=== PATIENT | female | born 1965 | race Caucasian/White ===

== ENCOUNTER 2020-02-18 23:58 | Inpatient (IN) ==
[2020-02-19] MEDS ORDERED: diphenhydrAMINE CAP 25 MG CAPSULE PO PRN (01:22)
[2020-02-19] MEDS ORDERED: hydrALAZINE 20 MG/1 ML VIAL IV PRN (01:22)
[2020-02-19] MEDS ORDERED: MORPHINE 4 MG/1 ML VIAL IV PRN (01:22)
[2020-02-19] MEDS ORDERED: GLUCAGON 1 MG VIAL IM PRN (01:22)
[2020-02-19] MEDS ORDERED: ONDANSETRON 4 MG/2 ML VIAL IV PRN (01:22)
[2020-02-19] MEDS ORDERED: NICOTINE 21 MG/24 HR PATCH TRANSDERM PRN (01:22)
[2020-02-19] MEDS ORDERED: DEXTROSE 50% 25 GM/50 ML VIAL IV PRN (01:22)
[2020-02-19] MEDS ORDERED: AZITHROMYCIN INJ 500 MG in SODIUM CHLORIDE 0.9% 250 ML IV SCH (01:30)
[2020-02-19] MEDS: DEXAMETHASONE 4 MG/1 ML VIAL IV SCH ×2 (03:54→13:30)
[2020-02-19 05:56] LABS: Basophils % 0.3 % (0.0-0.8); Hematocrit 41.9 VOL% (35.7-47.0); Hemoglobin 13.8 GM/DL (12.0-16.0); Immature Granulocytes % 0.3 %; Immature Granulocytes Absolute 0.01 #; Lymphocytes # 0.9 10*3/uL (1.4-4.0); Lymphocytes % 23.9 % (21.3-54.2); Mean Corpuscular HGB Conc 32.9 GM/DL (32-36); Mean Corpuscular Volume 87.7 FL (87-102); Mean Platelet Volume 9.2 FL (9.6-12.0); Monocytes % 2.7 % (1.7-12.7); Neutrophils % 72.8 % (38.7-73.9); Platelet Count 207 T/CUMM (130-400); Red Blood Count 4.78 MC/CUMM (3.8-5.5); Red Cell Distribution Width 12.4 % (9.3-17.3); White Blood Count 3.7 T/CUMM (4-12)
[2020-02-19 06:30] LABS: Albumin 2.8 G/DL (3.4-5.0); Bilirubin,Total 0.6 MG/DL (0.2-1.0); Calcium 8.3 MG/DL (8.5-10.1); Ferritin 948.8 ng/ml (8-252); Osmolality,Calculated 287.3 MOS/KG (273-304); Total Protein 6.8 G/DL (6.4-8.3)
[2020-02-19] MEDS: ENOXAPARIN 40 MG/0.4 ML SYRINGE SUBCUT SCH (09:19)
[2020-02-19] MEDS: INSULIN REGULAR 100 UNIT/ML SUBCUT SCH ×4 (09:19→21:15)
[2020-02-19] MEDS: ASCORBIC ACID 500 MG TABLET PO SCH ×2 (09:52→21:15)
[2020-02-19] MEDS: ZINC SULFATE 220 MG CAPSULE PO SCH (09:52)
[2020-02-19] MEDS ORDERED: cefTRIAXone 1,000 MG in SYRINGE 1 EACH IV SCH (13:00)
[2020-02-19] MEDS: SIMVASTATIN 10 MG TABLET PO SCH (21:54)
[2020-02-19] MEDS: tiZANidine 4 MG TABLET PO SCH (21:54)
[2020-02-19] MEDS: PREGABALIN 100 MG CAPSULE PO SCH (21:54)
[2020-02-19] MEDS: AMITRIPTYLINE 25 MG TABLET PO SCH (21:54)
[2020-02-20] MEDS: DEXAMETHASONE 4 MG/1 ML VIAL IV SCH ×2 (04:05→09:48)
[2020-02-20 05:10] LABS: Basophils % 0.1 % (0.0-0.8); Hematocrit 42.3 VOL% (35.7-47.0); Hemoglobin 13.9 GM/DL (12.0-16.0); Immature Granulocytes % 0.3 %; Immature Granulocytes Absolute 0.03 #; Lymphocytes # 1.1 10*3/uL (1.4-4.0); Lymphocytes % 11.4 % (21.3-54.2); Mean Corpuscular HGB Conc 32.9 GM/DL (32-36); Mean Platelet Volume 10.2 FL (9.6-12.0); Monocytes % 5.6 % (1.7-12.7); Neutrophils % 82.6 % (38.7-73.9); Platelet Count 257 T/CUMM (130-400); Red Blood Count 4.86 MC/CUMM (3.8-5.5); Red Cell Distribution Width 12.2 % (9.3-17.3); White Blood Count 9.3 T/CUMM (4-12)
[2020-02-20 05:37] LABS: Calcium 8.2 MG/DL (8.5-10.1); Ferritin 761.8 ng/ml (8-252); Osmolality,Calculated 287.4 MOS/KG (273-304)
[2020-02-20] MEDS: ASCORBIC ACID 500 MG TABLET PO SCH ×2 (09:28→20:44)
[2020-02-20] MEDS: PANTOPRAZOLE 40 MG TABLET PO SCH (09:29)
[2020-02-20] MEDS: glipiZIDE 10 MG TABLET PO SCH ×2 (09:29→18:25)
[2020-02-20] MEDS: PREGABALIN 100 MG CAPSULE PO SCH ×4 (09:29→21:30)
[2020-02-20] MEDS: lisinopriL 5 MG TABLET PO SCH (09:30)
[2020-02-20] MEDS: ENOXAPARIN 40 MG/0.4 ML SYRINGE SUBCUT SCH (09:31)
[2020-02-20] MEDS: INSULIN REGULAR 100 UNIT/ML SUBCUT SCH ×4 (09:31→20:44)
[2020-02-20] MEDS: ZINC SULFATE 220 MG CAPSULE PO SCH (09:31)
[2020-02-20] MEDS ORDERED: SODIUM CHLORIDE 0.9% 1,000 ML IV PRN (14:27)
[2020-02-20] MEDS ORDERED: REMDESIVIR 200 MG in SODIUM CHLORIDE 0.9% 210 ML IV ONE (15:30)
[2020-02-20] MEDS: AMITRIPTYLINE 25 MG TABLET PO SCH (20:43)
[2020-02-20] MEDS: tiZANidine 4 MG TABLET PO SCH (20:44)
[2020-02-20] MEDS: SIMVASTATIN 10 MG TABLET PO SCH (20:44)
[2020-02-20] MEDS: ACETAMINOPHEN 325 MG TABLET PO PRN (20:44)
[2020-02-20] MEDS: DAPAGLIFLOZIN 5 MG PO SCH (23:53)
[2020-02-20] MEDS: guaiFENesin/DM ER 600-30 MG TABLET PO PRN (23:54)
[2020-02-21] MEDS: ACETAMINOPHEN 325 MG TABLET PO PRN (02:28)
[2020-02-21] MEDS: CETIRIZINE 10 MG TABLET PO SCH ×2 (04:19→09:51)
[2020-02-21 05:54] LABS: Hematocrit 38.6 VOL% (35.7-47.0); Hemoglobin 12.8 GM/DL (12.0-16.0); Immature Granulocytes % 0.3 %; Immature Granulocytes Absolute 0.02 #; Lymphocytes # 1.7 10*3/uL (1.4-4.0); Mean Corpuscular HGB Conc 33.2 GM/DL (32-36); Mean Corpuscular Volume 86.7 FL (87-102); Mean Platelet Volume 9.8 FL (9.6-12.0); Monocytes % 8.8 % (1.7-12.7); Neutrophils % 68.9 % (38.7-73.9); Platelet Count 263 T/CUMM (130-400); Red Blood Count 4.45 MC/CUMM (3.8-5.5); Red Cell Distribution Width 12.3 % (9.3-17.3); White Blood Count 7.5 T/CUMM (4-12)
[2020-02-21 06:11] LABS: Calcium 8.4 MG/DL (8.5-10.1)
[2020-02-21] MEDS: DEXAMETHASONE 4 MG/1 ML VIAL IV SCH (09:50)
[2020-02-21] MEDS: ENOXAPARIN 40 MG/0.4 ML SYRINGE SUBCUT SCH (09:50)
[2020-02-21] MEDS: DAPAGLIFLOZIN 5 MG PO SCH (09:51)
[2020-02-21] MEDS: CHOLECALCIFEROL 1,000 UNIT TABLET PO SCH (09:51)
[2020-02-21] MEDS: PREGABALIN 100 MG CAPSULE PO SCH ×4 (09:51→21:20)
[2020-02-21] MEDS: INSULIN REGULAR 100 UNIT/ML SUBCUT SCH ×4 (09:51→21:20)
[2020-02-21] MEDS: ASCORBIC ACID 500 MG TABLET PO SCH ×2 (09:51→21:20)
[2020-02-21] MEDS: glipiZIDE 10 MG TABLET PO SCH ×2 (09:51→17:22)
[2020-02-21] MEDS: PANTOPRAZOLE 40 MG TABLET PO SCH (09:51)
[2020-02-21] MEDS: ZINC SULFATE 220 MG CAPSULE PO SCH (09:51)
[2020-02-21] MEDS: lisinopriL 5 MG TABLET PO SCH (09:51)
[2020-02-21] MEDS: REMDESIVIR 100 MG in SODIUM CHLORIDE 0.9% 230 ML IV SCH (09:52)
[2020-02-21] MEDS: ALBUTEROL INHALER 18 GM INH SCH ×3 (10:55→18:46)
[2020-02-21] MEDS: AMITRIPTYLINE 25 MG TABLET PO SCH (21:20)
[2020-02-21] MEDS: tiZANidine 4 MG TABLET PO SCH (21:20)
[2020-02-21] MEDS: SIMVASTATIN 10 MG TABLET PO SCH (21:21)
[2020-02-22] MEDS: ALBUTEROL INHALER 18 GM INH SCH ×4 (03:57→19:54)
[2020-02-22 06:41] LABS: Basophils % 0.2 % (0.0-0.8); Eosinophils % 0.4 % (0.00-10.9); Hematocrit 39.9 VOL% (35.7-47.0); Hemoglobin 13.3 GM/DL (12.0-16.0); Immature Granulocytes % 0.5 %; Immature Granulocytes Absolute 0.03 #; Lymphocytes # 2.1 10*3/uL (1.4-4.0); Lymphocytes % 37.4 % (21.3-54.2); Mean Corpuscular HGB Conc 33.3 GM/DL (32-36); Mean Corpuscular Volume 86.4 FL (87-102); Mean Platelet Volume 10.1 FL (9.6-12.0); Monocytes % 9.4 % (1.7-12.7); Neutrophils % 52.1 % (38.7-73.9); Platelet Count 288 T/CUMM (130-400); Red Blood Count 4.62 MC/CUMM (3.8-5.5); Red Cell Distribution Width 12.4 % (9.3-17.3); White Blood Count 5.6 T/CUMM (4-12)
[2020-02-22 06:58] LABS: Calcium 8.7 MG/DL (8.5-10.1); Osmolality,Calculated 287.3 MOS/KG (273-304)
[2020-02-22 07:06] LABS: Hypochromasia 1+
[2020-02-22 07:07] LABS: Microcytosis 1+; Polychromasia Slight
[2020-02-22 07:08] LABS: Platelet Estimate Normal
[2020-02-22] MEDS: DEXAMETHASONE 4 MG/1 ML VIAL IV SCH (09:02)
[2020-02-22] MEDS: ENOXAPARIN 40 MG/0.4 ML SYRINGE SUBCUT SCH (09:02)
[2020-02-22] MEDS: CHOLECALCIFEROL 1,000 UNIT TABLET PO SCH (09:03)
[2020-02-22] MEDS: ZINC SULFATE 220 MG CAPSULE PO SCH (09:03)
[2020-02-22] MEDS: ASCORBIC ACID 500 MG TABLET PO SCH ×2 (09:03→21:40)
[2020-02-22] MEDS: glipiZIDE 10 MG TABLET PO SCH ×2 (09:03→17:03)
[2020-02-22] MEDS: PREGABALIN 100 MG CAPSULE PO SCH ×4 (09:03→21:40)
[2020-02-22] MEDS: DAPAGLIFLOZIN 5 MG PO SCH (09:04)
[2020-02-22] MEDS: PANTOPRAZOLE 40 MG TABLET PO SCH (09:04)
[2020-02-22] MEDS: lisinopriL 5 MG TABLET PO SCH (09:04)
[2020-02-22] MEDS: INSULIN REGULAR 100 UNIT/ML SUBCUT SCH ×4 (09:04→21:39)
[2020-02-22] MEDS: CETIRIZINE 10 MG TABLET PO SCH (09:09)
[2020-02-22] MEDS: REMDESIVIR 100 MG in SODIUM CHLORIDE 0.9% 230 ML IV SCH (10:18)
[2020-02-22] MEDS: AMITRIPTYLINE 25 MG TABLET PO SCH (21:39)
[2020-02-22] MEDS: tiZANidine 4 MG TABLET PO SCH (21:40)
[2020-02-22] MEDS: SIMVASTATIN 10 MG TABLET PO SCH (21:40)
[2020-02-23] MEDS: ALBUTEROL INHALER 18 GM INH SCH ×4 (02:26→19:58)
[2020-02-23 06:26] LABS: Basophils % 0.1 % (0.0-0.8); Eosinophils # 0.1 10*3/uL (0.0-0.87); Eosinophils % 0.7 % (0.00-10.9); Hematocrit 41.4 VOL% (35.7-47.0); Hemoglobin 13.8 GM/DL (12.0-16.0); Immature Granulocytes % 0.6 %; Immature Granulocytes Absolute 0.04 #; Lymphocytes # 2.8 10*3/uL (1.4-4.0); Lymphocytes % 41.9 % (21.3-54.2); Mean Corpuscular HGB Conc 33.3 GM/DL (32-36); Mean Corpuscular Volume 86.4 FL (87-102); Mean Platelet Volume 9.8 FL (9.6-12.0); Monocytes % 6.6 % (1.7-12.7); Neutrophils % 50.1 % (38.7-73.9); Platelet Count 305 T/CUMM (130-400); Red Blood Count 4.79 MC/CUMM (3.8-5.5); Red Cell Distribution Width 12.3 % (9.3-17.3); White Blood Count 6.8 T/CUMM (4-12)
[2020-02-23 07:02] LABS: Lymphocytes 39 % (20-55); Platelet Estimate Normal; Segmented Neutrophils 55 % (50-85); Total Cells Counted 100
[2020-02-23 07:11] LABS: Calcium 8.5 MG/DL (8.5-10.1); Osmolality,Calculated 284.3 MOS/KG (273-304)
[2020-02-23] MEDS: INSULIN REGULAR 100 UNIT/ML SUBCUT SCH ×4 (08:03→21:21)
[2020-02-23] MEDS: DEXAMETHASONE 4 MG/1 ML VIAL IV SCH (09:15)
[2020-02-23] MEDS: REMDESIVIR 100 MG in SODIUM CHLORIDE 0.9% 230 ML IV SCH (09:15)
[2020-02-23] MEDS: ENOXAPARIN 40 MG/0.4 ML SYRINGE SUBCUT SCH (09:15)
[2020-02-23] MEDS: glipiZIDE 10 MG TABLET PO SCH ×2 (09:16→16:30)
[2020-02-23] MEDS: ASCORBIC ACID 500 MG TABLET PO SCH ×2 (09:16→21:22)
[2020-02-23] MEDS: PREGABALIN 100 MG CAPSULE PO SCH ×4 (09:16→21:21)
[2020-02-23] MEDS: CHOLECALCIFEROL 1,000 UNIT TABLET PO SCH (09:16)
[2020-02-23] MEDS: PANTOPRAZOLE 40 MG TABLET PO SCH (09:16)
[2020-02-23] MEDS: ZINC SULFATE 220 MG CAPSULE PO SCH (09:16)
[2020-02-23] MEDS: CETIRIZINE 10 MG TABLET PO SCH (09:16)
[2020-02-23] MEDS: DAPAGLIFLOZIN 5 MG PO SCH (09:16)
[2020-02-23] MEDS: lisinopriL 5 MG TABLET PO SCH (09:17)
[2020-02-23] MEDS ORDERED: MAGNESIUM SULF RIDER 2 GM in PREMIX 1 EACH IV ONE (10:56)
[2020-02-23] MEDS: AMITRIPTYLINE 25 MG TABLET PO SCH (21:21)
[2020-02-23] MEDS: tiZANidine 4 MG TABLET PO SCH (21:22)
[2020-02-23] MEDS: SIMVASTATIN 10 MG TABLET PO SCH (21:22)
[2020-02-23] MEDS: guaiFENesin/DM ER 600-30 MG TABLET PO PRN (21:31)
[2020-02-23] MEDS: FLUCONAZOLE 150 MG TABLET PO SCH (23:21)
[2020-02-24] MEDS: ALBUTEROL INHALER 18 GM INH SCH ×4 (02:09→18:00)
[2020-02-24 05:55] LABS: Basophils % 0.1 % (0.0-0.8); Eosinophils # 0.1 10*3/uL (0.0-0.87); Eosinophils % 0.7 % (0.00-10.9); Hematocrit 40.3 VOL% (35.7-47.0); Hemoglobin 13.6 GM/DL (12.0-16.0); Immature Granulocytes % 0.6 %; Immature Granulocytes Absolute 0.04 #; Lymphocytes # 2.2 10*3/uL (1.4-4.0); Lymphocytes % 30.3 % (21.3-54.2); Mean Corpuscular HGB Conc 33.7 GM/DL (32-36); Mean Corpuscular Volume 85.2 FL (87-102); Mean Platelet Volume 9.7 FL (9.6-12.0); Monocytes % 5.9 % (1.7-12.7); Neutrophils % 62.4 % (38.7-73.9); Platelet Count 347 T/CUMM (130-400); Red Blood Count 4.73 MC/CUMM (3.8-5.5); Red Cell Distribution Width 12.1 % (9.3-17.3); White Blood Count 7.1 T/CUMM (4-12)
[2020-02-24 06:15] LABS: Calcium 8.5 MG/DL (8.5-10.1); Osmolality,Calculated 286.7 MOS/KG (273-304)
[2020-02-24 06:18] LABS: Hypochromasia 1+; Lymphocytes 28 % (20-55); Microcytosis 1+; Platelet Estimate Adequate; Segmented Neutrophils 67 % (50-85); Total Cells Counted 100
[2020-02-24] MEDS: ENOXAPARIN 40 MG/0.4 ML SYRINGE SUBCUT SCH (09:51)
[2020-02-24] MEDS: DEXAMETHASONE 4 MG/1 ML VIAL IV SCH (09:51)
[2020-02-24] MEDS: PANTOPRAZOLE 40 MG TABLET PO SCH (09:51)
[2020-02-24] MEDS: PREGABALIN 100 MG CAPSULE PO SCH ×4 (09:51→22:17)
[2020-02-24] MEDS: CETIRIZINE 10 MG TABLET PO SCH (09:51)
[2020-02-24] MEDS: ZINC SULFATE 220 MG CAPSULE PO SCH (09:51)
[2020-02-24] MEDS: lisinopriL 5 MG TABLET PO SCH (09:51)
[2020-02-24] MEDS: REMDESIVIR 100 MG in SODIUM CHLORIDE 0.9% 230 ML IV SCH (09:51)
[2020-02-24] MEDS: ASCORBIC ACID 500 MG TABLET PO SCH ×2 (09:51→22:17)
[2020-02-24] MEDS: CHOLECALCIFEROL 1,000 UNIT TABLET PO SCH (09:51)
[2020-02-24] MEDS: INSULIN REGULAR 100 UNIT/ML SUBCUT SCH ×4 (10:16→22:16)
[2020-02-24] MEDS: glipiZIDE 10 MG TABLET PO SCH ×2 (10:16→17:06)
[2020-02-24] MEDS: DAPAGLIFLOZIN 5 MG PO SCH (10:25)
[2020-02-24] MEDS: AMITRIPTYLINE 25 MG TABLET PO SCH (22:16)
[2020-02-24] MEDS: tiZANidine 4 MG TABLET PO SCH (22:18)
[2020-02-24] MEDS: SIMVASTATIN 10 MG TABLET PO SCH (22:18)
[2020-02-25] MEDS: ALBUTEROL INHALER 18 GM INH SCH ×4 (02:08→19:30)
[2020-02-25 06:21] LABS: Basophils % 0.2 % (0.0-0.8); Eosinophils % 0.3 % (0.00-10.9); Hematocrit 41.2 VOL% (35.7-47.0); Immature Granulocytes % 0.5 %; Immature Granulocytes Absolute 0.05 #; Lymphocytes # 1.4 10*3/uL (1.4-4.0); Lymphocytes % 14.3 % (21.3-54.2); Mean Corpuscular Volume 84.8 FL (87-102); Mean Platelet Volume 9.8 FL (9.6-12.0); Monocytes % 6.2 % (1.7-12.7); Neutrophils % 78.5 % (38.7-73.9); Platelet Count 385 T/CUMM (130-400); Red Blood Count 4.86 MC/CUMM (3.8-5.5); Red Cell Distribution Width 12.2 % (9.3-17.3); White Blood Count 9.6 T/CUMM (4-12)
[2020-02-25 06:21] LABS: Calcium 8.9 MG/DL (8.5-10.1); Osmolality,Calculated 286.7 MOS/KG (273-304)
[2020-02-25] MEDS: ZINC SULFATE 220 MG CAPSULE PO SCH (08:41)
[2020-02-25] MEDS: PREGABALIN 100 MG CAPSULE PO SCH ×4 (08:41→21:32)
[2020-02-25] MEDS: INSULIN REGULAR 100 UNIT/ML SUBCUT SCH ×4 (08:41→21:37)
[2020-02-25] MEDS: PANTOPRAZOLE 40 MG TABLET PO SCH (08:41)
[2020-02-25] MEDS: glipiZIDE 10 MG TABLET PO SCH ×2 (08:41→16:15)
[2020-02-25] MEDS: ASCORBIC ACID 500 MG TABLET PO SCH ×2 (08:41→21:33)
[2020-02-25] MEDS: DEXAMETHASONE 4 MG/1 ML VIAL IV SCH (08:41)
[2020-02-25] MEDS: CETIRIZINE 10 MG TABLET PO SCH (08:41)
[2020-02-25] MEDS: CHOLECALCIFEROL 1,000 UNIT TABLET PO SCH (08:41)
[2020-02-25] MEDS: DAPAGLIFLOZIN 5 MG PO SCH (08:41)
[2020-02-25] MEDS: ENOXAPARIN 40 MG/0.4 ML SYRINGE SUBCUT SCH (08:42)
[2020-02-25] MEDS: lisinopriL 5 MG TABLET PO SCH (08:53)
[2020-02-25] MEDS: AMITRIPTYLINE 25 MG TABLET PO SCH (21:31)
[2020-02-25] MEDS: SIMVASTATIN 10 MG TABLET PO SCH (21:34)
[2020-02-25] MEDS: tiZANidine 4 MG TABLET PO SCH (21:36)
[2020-02-26] MEDS: ALBUTEROL INHALER 18 GM INH SCH ×4 (00:37→19:34)
[2020-02-26 06:24] LABS: Basophils % 0.2 % (0.0-0.8); Eosinophils # 0.1 10*3/uL (0.0-0.87); Eosinophils % 0.7 % (0.00-10.9); Hematocrit 41.7 VOL% (35.7-47.0); Hemoglobin 14.1 GM/DL (12.0-16.0); Immature Granulocytes % 0.7 %; Immature Granulocytes Absolute 0.07 #; Lymphocytes # 2.1 10*3/uL (1.4-4.0); Lymphocytes % 19.1 % (21.3-54.2); Mean Corpuscular HGB Conc 33.8 GM/DL (32-36); Mean Corpuscular Volume 85.3 FL (87-102); Neutrophils % 74.3 % (38.7-73.9); Platelet Count 381 T/CUMM (130-400); Red Blood Count 4.89 MC/CUMM (3.8-5.5); Red Cell Distribution Width 12.2 % (9.3-17.3); White Blood Count 10.8 T/CUMM (4-12)
[2020-02-26] MEDS: INSULIN REGULAR 100 UNIT/ML SUBCUT SCH ×4 (07:40→21:46)
[2020-02-26 08:56] LABS: Calcium 9.1 MG/DL (8.5-10.1); Osmolality,Calculated 293.1 MOS/KG (273-304)
[2020-02-26] MEDS: DEXAMETHASONE 4 MG/1 ML VIAL IV SCH (09:40)
[2020-02-26] MEDS: ZINC SULFATE 220 MG CAPSULE PO SCH (09:43)
[2020-02-26] MEDS: PREGABALIN 100 MG CAPSULE PO SCH ×4 (09:43→21:40)
[2020-02-26] MEDS: ENOXAPARIN 40 MG/0.4 ML SYRINGE SUBCUT SCH (09:43)
[2020-02-26] MEDS: ASCORBIC ACID 500 MG TABLET PO SCH ×2 (09:43→21:41)
[2020-02-26] MEDS: glipiZIDE 10 MG TABLET PO SCH ×2 (09:43→16:41)
[2020-02-26] MEDS: CETIRIZINE 10 MG TABLET PO SCH (09:43)
[2020-02-26] MEDS: CHOLECALCIFEROL 1,000 UNIT TABLET PO SCH (09:43)
[2020-02-26] MEDS: PANTOPRAZOLE 40 MG TABLET PO SCH (09:43)
[2020-02-26] MEDS: DAPAGLIFLOZIN 5 MG PO SCH (09:43)
[2020-02-26] MEDS: lisinopriL 5 MG TABLET PO SCH (10:25)
[2020-02-26] MEDS: AMITRIPTYLINE 25 MG TABLET PO SCH (21:40)
[2020-02-26] MEDS: SIMVASTATIN 10 MG TABLET PO SCH (21:41)
[2020-02-26] MEDS: tiZANidine 4 MG TABLET PO SCH (21:41)
[2020-02-26] MEDS: FLUCONAZOLE 150 MG TABLET PO SCH (22:40)
[2020-02-26] MEDS: guaiFENesin/DM ER 600-30 MG TABLET PO PRN (23:04)
[2020-02-27] MEDS: ALBUTEROL INHALER 18 GM INH SCH ×4 (00:50→18:19)
[2020-02-27 05:45] LABS: Basophils % 0.2 % (0.0-0.8); Eosinophils # 0.1 10*3/uL (0.0-0.87); Eosinophils % 0.9 % (0.00-10.9); Hematocrit 43.9 VOL% (35.7-47.0); Hemoglobin 14.8 GM/DL (12.0-16.0); Immature Granulocytes % 0.6 %; Immature Granulocytes Absolute 0.06 #; Lymphocytes # 1.8 10*3/uL (1.4-4.0); Lymphocytes % 18.6 % (21.3-54.2); Mean Corpuscular HGB Conc 33.7 GM/DL (32-36); Mean Corpuscular Volume 85.4 FL (87-102); Monocytes % 6.1 % (1.7-12.7); Neutrophils % 73.6 % (38.7-73.9); Platelet Count 385 T/CUMM (130-400); Red Blood Count 5.14 MC/CUMM (3.8-5.5); Red Cell Distribution Width 12.2 % (9.3-17.3); White Blood Count 9.4 T/CUMM (4-12)
[2020-02-27 06:09] LABS: Calcium 9.1 MG/DL (8.5-10.1); Osmolality,Calculated 288.5 MOS/KG (273-304)
[2020-02-27] MEDS: glipiZIDE 10 MG TABLET PO SCH ×2 (09:10→16:30)
[2020-02-27] MEDS: ASCORBIC ACID 500 MG TABLET PO SCH ×2 (09:11→21:19)
[2020-02-27] MEDS: ZINC SULFATE 220 MG CAPSULE PO SCH (09:11)
[2020-02-27] MEDS: CHOLECALCIFEROL 1,000 UNIT TABLET PO SCH (09:11)
[2020-02-27] MEDS: CETIRIZINE 10 MG TABLET PO SCH (09:11)
[2020-02-27] MEDS: PREGABALIN 100 MG CAPSULE PO SCH ×4 (09:11→21:19)
[2020-02-27] MEDS: ENOXAPARIN 40 MG/0.4 ML SYRINGE SUBCUT SCH (09:12)
[2020-02-27] MEDS: INSULIN REGULAR 100 UNIT/ML SUBCUT SCH ×4 (09:12→21:18)
[2020-02-27] MEDS: PANTOPRAZOLE 40 MG TABLET PO SCH (09:12)
[2020-02-27] MEDS: DAPAGLIFLOZIN 5 MG PO SCH (09:13)
[2020-02-27] MEDS: DEXAMETHASONE 4 MG/1 ML VIAL IV SCH (09:13)
[2020-02-27] MEDS: lisinopriL 5 MG TABLET PO SCH (09:15)
[2020-02-27] MEDS: AMITRIPTYLINE 25 MG TABLET PO SCH (21:19)
[2020-02-27] MEDS: tiZANidine 4 MG TABLET PO SCH (21:19)
[2020-02-27] MEDS: SIMVASTATIN 10 MG TABLET PO SCH (21:19)
[2020-02-28] MEDS: ALBUTEROL INHALER 18 GM INH SCH ×4 (01:15→21:13)
[2020-02-28 05:43] LABS: Basophils % 0.2 % (0.0-0.8); Eosinophils # 0.1 10*3/uL (0.0-0.87); Eosinophils % 0.9 % (0.00-10.9); Hematocrit 43.6 VOL% (35.7-47.0); Hemoglobin 14.9 GM/DL (12.0-16.0); Immature Granulocytes % 0.5 %; Immature Granulocytes Absolute 0.05 #; Lymphocytes # 2.1 10*3/uL (1.4-4.0); Lymphocytes % 21.8 % (21.3-54.2); Mean Corpuscular HGB Conc 34.2 GM/DL (32-36); Mean Corpuscular Volume 85.3 FL (87-102); Mean Platelet Volume 10.2 FL (9.6-12.0); Neutrophils % 70.6 % (38.7-73.9); Platelet Count 372 T/CUMM (130-400); Red Blood Count 5.11 MC/CUMM (3.8-5.5); Red Cell Distribution Width 12.1 % (9.3-17.3); White Blood Count 9.7 T/CUMM (4-12)
[2020-02-28 06:12] LABS: Calcium 9.1 MG/DL (8.5-10.1)
[2020-02-28] MEDS: INSULIN REGULAR 100 UNIT/ML SUBCUT SCH ×4 (08:21→21:13)
[2020-02-28] MEDS: DEXAMETHASONE 4 MG/1 ML VIAL IV SCH (08:22)
[2020-02-28] MEDS: lisinopriL 5 MG TABLET PO SCH (08:23)
[2020-02-28] MEDS: PANTOPRAZOLE 40 MG TABLET PO SCH (08:23)
[2020-02-28] MEDS: PREGABALIN 100 MG CAPSULE PO SCH ×4 (08:23→21:14)
[2020-02-28] MEDS: ENOXAPARIN 40 MG/0.4 ML SYRINGE SUBCUT SCH (08:23)
[2020-02-28] MEDS: ASCORBIC ACID 500 MG TABLET PO SCH ×2 (08:24→21:14)
[2020-02-28] MEDS: ZINC SULFATE 220 MG CAPSULE PO SCH (08:24)
[2020-02-28] MEDS: CETIRIZINE 10 MG TABLET PO SCH (08:24)
[2020-02-28] MEDS: CHOLECALCIFEROL 1,000 UNIT TABLET PO SCH (08:24)
[2020-02-28] MEDS: glipiZIDE 10 MG TABLET PO SCH ×2 (08:25→16:17)
[2020-02-28] MEDS: DAPAGLIFLOZIN 5 MG PO SCH (09:10)
[2020-02-28] MEDS: AMITRIPTYLINE 25 MG TABLET PO SCH (21:13)
[2020-02-28] MEDS: SIMVASTATIN 10 MG TABLET PO SCH (21:13)
[2020-02-28] MEDS: tiZANidine 4 MG TABLET PO SCH (21:14)
[2020-02-29] MEDS: ALBUTEROL INHALER 18 GM INH SCH ×4 (01:10→19:48)
[2020-02-29 05:46] LABS: Basophils % 0.1 % (0.0-0.8); Eosinophils % 0.4 % (0.00-10.9); Hematocrit 42.4 VOL% (35.7-47.0); Hemoglobin 14.3 GM/DL (12.0-16.0); Immature Granulocytes % 0.7 %; Immature Granulocytes Absolute 0.07 #; Lymphocytes # 2.1 10*3/uL (1.4-4.0); Lymphocytes % 20.6 % (21.3-54.2); Mean Corpuscular HGB Conc 33.7 GM/DL (32-36); Mean Corpuscular Volume 85.3 FL (87-102); Mean Platelet Volume 9.8 FL (9.6-12.0); Monocytes % 5.8 % (1.7-12.7); Neutrophils % 72.4 % (38.7-73.9); Platelet Count 361 T/CUMM (130-400); Red Blood Count 4.97 MC/CUMM (3.8-5.5); Red Cell Distribution Width 12.2 % (9.3-17.3); White Blood Count 10.3 T/CUMM (4-12)
[2020-02-29 05:55] LABS: Calcium 9.3 MG/DL (8.5-10.1)
[2020-02-29] MEDS: lisinopriL 5 MG TABLET PO SCH (08:44)
[2020-02-29] MEDS: PANTOPRAZOLE 40 MG TABLET PO SCH (08:44)
[2020-02-29] MEDS: ZINC SULFATE 220 MG CAPSULE PO SCH (08:44)
[2020-02-29] MEDS: CETIRIZINE 10 MG TABLET PO SCH (08:44)
[2020-02-29] MEDS: ASCORBIC ACID 500 MG TABLET PO SCH ×2 (08:44→22:18)
[2020-02-29] MEDS: PREGABALIN 100 MG CAPSULE PO SCH ×4 (08:44→22:21)
[2020-02-29] MEDS: glipiZIDE 10 MG TABLET PO SCH ×2 (08:44→18:20)
[2020-02-29] MEDS: INSULIN REGULAR 100 UNIT/ML SUBCUT SCH ×4 (08:45→22:21)
[2020-02-29] MEDS: ENOXAPARIN 40 MG/0.4 ML SYRINGE SUBCUT SCH (08:45)
[2020-02-29] MEDS: CHOLECALCIFEROL 1,000 UNIT TABLET PO SCH (08:45)
[2020-02-29] MEDS: DAPAGLIFLOZIN 5 MG PO SCH (08:45)
[2020-02-29] MEDS: DEXAMETHASONE 4 MG/1 ML VIAL IV SCH (08:46)
[2020-02-29] MEDS ORDERED: INSULIN GLARGINE 100 UNIT/ML SUBCUT SCH (21:00)
[2020-02-29] MEDS: AMITRIPTYLINE 25 MG TABLET PO SCH (22:17)
[2020-02-29] MEDS: tiZANidine 4 MG TABLET PO SCH (22:17)
[2020-02-29] MEDS: SIMVASTATIN 10 MG TABLET PO SCH (22:20)
[2020-03-01] MEDS: ALBUTEROL INHALER 18 GM INH SCH ×3 (00:18→12:31)
[2020-03-01] MEDS: ZINC SULFATE 220 MG CAPSULE PO SCH (09:20)
[2020-03-01] MEDS: PREGABALIN 100 MG CAPSULE PO SCH ×2 (09:20→12:18)
[2020-03-01] MEDS: lisinopriL 5 MG TABLET PO SCH ×2 (09:20→10:18)
[2020-03-01] MEDS: ASCORBIC ACID 500 MG TABLET PO SCH (09:20)
[2020-03-01] MEDS: CETIRIZINE 10 MG TABLET PO SCH (09:20)
[2020-03-01] MEDS: glipiZIDE 10 MG TABLET PO SCH (09:21)
[2020-03-01] MEDS: INSULIN REGULAR 100 UNIT/ML SUBCUT SCH ×2 (09:21→12:18)
[2020-03-01] MEDS: ENOXAPARIN 40 MG/0.4 ML SYRINGE SUBCUT SCH (09:22)
[2020-03-01] MEDS: DEXAMETHASONE 4 MG/1 ML VIAL IV SCH (09:22)
[2020-03-01] MEDS: PANTOPRAZOLE 40 MG TABLET PO SCH (09:23)
[2020-03-01] MEDS: DAPAGLIFLOZIN 5 MG PO SCH (09:47)
[2020-03-01] MEDS: CHOLECALCIFEROL 1,000 UNIT TABLET PO SCH (10:18)
[2020-03-01 12:05] VITALS: BP 111/71
== END 2020-03-01 15:58 | disposition home or self-care (01) | DRG 177 ==
LOC: INTOOBSV 02-19 01:37 → N.2E 02-19 01:37 → SUATTDRO 02-19 01:37
PROVIDERS: ADMIT Internal Medicine; ATTEND Emergency Medicine